=== PATIENT | male | born 1965 | race Caucasian/White ===

== ENCOUNTER 2018-03-12 19:14 | Emergency (ER) | payer MEDICAID, OTHER ==
[2018-03-12] MEDS: LIDOCAINE 1% MDV 20ML VIAL SC (19:34)
[2018-03-12] MEDS: ADACEL/BOOSTRIX VACCINE (DIPHTH/PERTUSS/ACELL/TETANUS)0.5ML SYR (90715) IM (20:22)
== END 2018-03-12 20:44 | disposition home or self-care (01) ==
LOC: M ED 19:14
DX: S61.210A Laceration without foreign body of right index finger without damage to nail, initial encounter (principal); W27.0XXA Contact with workbench tool, initial encounter; Y92.090 Kitchen in other non-institutional residence as the place of occurrence of the external cause; K08.89 Other specified disorders of teeth and supporting structures; F20.9 Schizophrenia, unspecified; Z88.2 Allergy status to sulfonamides; Z88.8 Allergy status to other drugs, medicaments and biological substances; Z79.899 Other long term (current) drug therapy; Z79.51 Long term (current) use of inhaled steroids; Z79.52 Long term (current) use of systemic steroids
CPT/HCPCS: 90715

== ENCOUNTER 2018-03-22 08:58 | Emergency (ER) | payer OTHER, MEDICAID | END 2018-03-22 09:26 | disposition home or self-care (01) | LOC: M ED 08:58 | DX: Z48.02 Encounter for removal of sutures (principal) | CPT/HCPCS: 99282 ==

== ENCOUNTER 2018-09-25 09:19 | Day surgery (SDC) | payer OTHER ==
[~2018-09-25] VITALS: Ht 177.8 cm; Wt 95.0 kg
[~2018-09-25 09:19] MED LIST: ALLE25CA OR; AUGM875T28 PO; BREO1INH3 INH; DEPA250T3 OR; DEPA500T OR; DILA100C OR; FLUPHENAZINE PO; HALO1TAB21 PO; IBUP-1022 PO; INCR1INH INH; INVE156I IM; INVE9TAB OR; LORA-243; LORA-674 PO; LR 1,000 ML IV ONE; OMEG12003 PO; PRED10TA2; PRIL20CA OR; Prolixin; RISP1SS PO; RISP25INJ; RISP3TAB16 OR; RISP4TAB OR; SERO1TAB OR; SERO1TAB PO; SERO1TAB3 OR; SIMV20TA2 PO
[2018-09-25] MEDS ORDERED: PROPOFOL 200 MG/20 ML VIAL As Ordered ONE (09:45)
[2018-09-25] MEDS ORDERED: LIDOCAINE 2% INJ 100 MG/5 ML SDV (FOR ANES.) As Ordered ONE (09:45)
[2018-09-25] MEDS ORDERED: ROCURONIUM BROMIDE 50 MG/5 ML VIAL As Ordered ONE (09:45)
[2018-09-25] MEDS ORDERED: MIDAZOLAM INJ 2 MG/2 ML VIAL (J2250) As Ordered ONE (09:45)
[2018-09-25] MEDS ORDERED: fentaNYL 100 MCG/2 ML INJECTION (J3010) As Ordered ONE (09:45)
[2018-09-25] MEDS ORDERED: EPINEPHrine 1MG/ML INJ 30ML MD-VIAL As Ordered ONE (10:10)
[2018-09-25] MEDS ORDERED: CETACAINE SPRAY 5GM As Ordered ONE (10:10)
[2018-09-25] MEDS ORDERED: dexameTHASONE 4 MG/ML 1ML VIAL (J1100) As Ordered ONE (10:42)
[2018-09-25] MEDS ORDERED: ONDANSETRON 4MG/2ML VIAL (J2405) As Ordered ONE (10:58)
[2018-09-25] MEDS ORDERED: SUGAMMADEX SODIUM 500 MG/5 ML VIAL (BRIDION) As Ordered ONE (10:58)
[2018-09-25] MEDS ORDERED: LR 1,000 ML IV SCH (11:30)
[2018-09-25] MEDS ORDERED: ONDANSETRON 4MG/2ML VIAL (J2405) IV PRN (11:30)
[2018-09-25] MEDS ORDERED: fentaNYL 100 MCG/2 ML INJECTION (J3010) IV PRN (11:30)
[2018-09-25] MEDS ORDERED: PERCOCET 5MG/325MG TAB PO PRN ×2 (11:30)
[2018-09-25] MEDS ORDERED: IBUPROFEN 800 MG TAB PO PRN (11:30)
[2018-09-25 11:50] VITALS: BP 128/84
--- NOTE | 2018-09-26 00:35 | ECGEPIP ---
Stationary ECG Study [facility] Test Date: 2018-09-25 Pat Name: SHAMEKA DUBON Department: Room: - Gender: M Tactical Deception Plans Officer: BECKY : 1965 Requested By: MARIO Dickerson Order Number: [id number] Reading MD: Luis Angel Nicolas Measurements Intervals [place] Rate: 80 P: 68 GA: 153 QRS: 75 QRSD: 101 T: 62 QT: 345 QTc: 400 Interpretive Statements SINUS RHYTHM POSSIBLE RIGHT VENTRICULAR CONDUCTION DELAY Comparison tracing not on file Electronically Signed On 09-26-2018 0:35:08 EDT by Luis Angel Nicolas
--- NOTE | 2018-10-17 12:29 | RO ---
DATE OF OPERATION: 09/25/2018 PREOPERATIVE DIAGNOSIS: Chronic laryngitis. POSTOPERATIVE DIAGNOSIS: Chronic laryngitis. PROCEDURE: Microdirect laryngoscopy with photomicrograph biopsy of selected suspicious area of larynx. SURGEON: Giorgi Shane MD QUILL MACHINE OPERATOR: ANESTHESIA: INDICATIONS: This is a 53-year-old with a long history of smoking behavior associated with increasing hoarseness. Office examination demonstrated laryngitis with a very angry-looking larynx associated with hypertrophy, leukoplakia, and erythema DESCRIPTION OF PROCEDURE: Satisfactory general endotracheal anesthesia administered using the small #5.5 tube. The patient placed in usual position for endoscopy. A double-lighted Dedo laryngoscope was used for inspection. The scope was advanced into the oropharynx into the tongue base and vallecula area, including inspection of the nares showed no lesions. The scope was then advanced into the glottic vestibule. Inspection of piriform fossa, as well as postcricoid region was also clear. Once the scope was in the glottic vestibule, it was suspended with the Lewy apparatus. Photomicrographs were taken that revealed significant amount of hypertrophy, hyperkeratosis of the cords associated with some mucocele formation in the superior surface of both left and right true cord. The supraglottic larynx was also angry red with hypertrophic erythematous mucosa. Select biopsies were done on the superior surface of both vocal cords where the thicker leukoplakia was noted. The cystic lesions were debulked using cup forceps. Care was taken to avoid to the edge of the vocal fold or the lamina propria. Adrenaline pledgets were placed in the biopsy sites for hemostasis and were successful. The larynx was suctioned. Photomicrographs were taken, and then the scope was removed. The patient was then awakened and extubated and sent to recovery in satisfactory condition. He will be in the office in 5 days to discuss the results of his biopsies and to review the importance of smoking cessation.
== END 2018-09-25 12:06 | disposition home or self-care (01) ==
LOC: M SDC 09:19
PROVIDERS: ATTEND Specialist
DX: J37.0 Chronic laryngitis (principal); J38.3 Other diseases of vocal cords; F41.9 Anxiety disorder, unspecified; G40.909 Epilepsy, unspecified, not intractable, without status epilepticus; E78.00 Pure hypercholesterolemia, unspecified; J45.909 Unspecified asthma, uncomplicated; K21.9 Gastro-esophageal reflux disease without esophagitis; F25.9 Schizoaffective disorder, unspecified; Z88.2 Allergy status to sulfonamides; Z88.8 Allergy status to other drugs, medicaments and biological substances; Z91.030 Bee allergy status; Z79.899 Other long term (current) drug therapy; Z72.0 Tobacco use
CPT/HCPCS: 31535; 88305; 93005; J1100; J2250; J2405; J3010

== ENCOUNTER 2020-07-12 13:57 | Inpatient (IN) | payer MEDICAID, OTHER ==
[~2020-07-12] VITALS: Ht 185.4 cm; Wt 79.9 kg
[~2020-07-12 13:57] MED LIST changes: -LR 1,000 ML IV ONE; -SIMV20TA2 PO; +SIMV20TA22 PO
[2020-07-12] MEDS ORDERED: LORazepam 2 MG/ML VIAL IM STA ×2 (15:00→19:41)
[2020-07-12] MEDS ORDERED: HALOPERIDOL 5MG/ML VIAL (J1630 PER 1) As Ordered ONE (15:10)
[2020-07-12] MEDS ORDERED: diphenhydrAMINE 50MG/ML VIAL (J1200) As Ordered ONE (15:10)
[2020-07-12] MEDS ORDERED: diphenhydrAMINE 50MG/ML VIAL (J1200) IM ONE (15:15)
[2020-07-12] MEDS ORDERED: HALOPERIDOL 5MG/ML VIAL (J1630 PER 1) IM ONE (15:15)
[2020-07-12 16:08] LABS: HEMATOCRIT 42.2 % (42.0-52.0); HEMOGLOBIN 14.1 g/dl (13.5-17.5); MEAN CORPUSCULAR HEMOGLOBIN 32.7 pg (27.0-33.0); MEAN CORPUSCULAR HGB CONC 33.4 g/dl (32.0-36.5); MEAN CORPUSCULAR VOLUME 97.9 fl (80.0-96.0); PLATELET COUNT, AUTOMATED 278 10^3/uL (150-450); RED BLOOD COUNT 4.31 10^6/uL (4.30-6.10); WHITE BLOOD COUNT 8.3 10^3/uL (4.0-10.0)
[2020-07-12 16:18] LABS: AMPHETAMINES LEVEL URINE NEGATIVE (NEGATIVE); BARBITURATES URINE NEGATIVE (NEGATIVE); BENZODIAZEPINES URINE NEGATIVE (NEGATIVE); CANNABINOIDS URINE POSITIVE (NEGATIVE); COCAINE METABOLITE URINE NEGATIVE (NEGATIVE); METHADONE URINE NEGATIVE (NEGATIVE); OPIATES URINE NEGATIVE (NEGATIVE); PHENCYCLIDINE URINE NEGATIVE (NEGATIVE)
[2020-07-12 16:28] LABS: ACETAMINOPHEN LEVEL < 2.0 UG/ML (10.0-30.0); ALBUMIN 3.6 GM/DL (3.2-5.2); ALT/SGPT 27 U/L (12-78); BILIRUBIN,DIRECT 0.2 MG/DL (0.0-0.2); BILIRUBIN,TOTAL 0.5 MG/DL (0.2-1.0); BLOOD UREA NITROGEN 9 MG/DL (7-18); CALCIUM LEVEL 9.1 MG/DL (8.5-10.1); CARBON DIOXIDE LEVEL 28 MEQ/L (21-32); CHLORIDE LEVEL 105 MEQ/L (98-107); CREATININE FOR GFR 0.81 MG/DL (0.70-1.30); ETHYL ALCOHOL (ETHANOL) 0.218 % (0.000-0.010); GLOMERULAR FILTRATION RATE > 60.0 (>56); GLUCOSE, FASTING 90 MG/DL (70-100); POTASSIUM SERUM 3.8 MEQ/L (3.5-5.1); SALICYLATE LEVEL 3.2 MG/DL (5.0-30.0); SODIUM LEVEL 139 MEQ/L (136-145); TOTAL PROTEIN 6.9 GM/DL (6.4-8.2)
[2020-07-13] MEDS ORDERED: RISP-8 PO (00:26)
[2020-07-13] MEDS ORDERED: FLUT1INH3 INH (00:26)
[2020-07-13] MEDS ORDERED: RISP1TAB42 PO (00:26)
[2020-07-13] MEDS ORDERED: PATIENT COMMENT (00:27)
[2020-07-13] MEDS ORDERED: MAALOX 30 ML SUSP *UDC PO PRN (01:00)
[2020-07-13] MEDS ORDERED: MOM 30ML SUSPENSION UDC PO PRN (01:00)
[2020-07-13] MEDS ORDERED: LORazepam 2 MG TAB PO PRN (01:00)
[2020-07-13] MEDS: ADVAIR HFA 230/21MCG INHALER INH SCH ×2 (09:15→20:04)
[2020-07-13] MEDS: TIOTROPIUM INHALER/CAPSULE (SPIRIVA) INH SCH (09:15)
[2020-07-13] MEDS: risperiDONE 1 MG TAB PO SCH ×2 (09:16→20:04)
[2020-07-13] MEDS: THIAMINE 100 MG TAB PO SCH ×2 (09:16→20:04)
[2020-07-13] MEDS: FOLIC ACID 1 MG TAB PO SCH (09:16)
[2020-07-13] MEDS: MULTIVITAMINS/MINERALS THERAP 1 TAB PO SCH (09:16)
[2020-07-13] MEDS ORDERED: ALBUTEROL 90 MCG/ACT 8GM HFA INHALER INH PRN (11:00)
[2020-07-13 11:54] VITALS: BP 135/84
--- NOTE | 2020-07-13 13:16 | HPE ---
HISTORY AND PHYSICAL DATE OF ADMISSION: 07/13/2020 HISTORY OF PRESENT ILLNESS: This is a Hospitalist-generated history and physical on Kd Philip who is seen in Inpatient Mental Health Unit. Kd coincidentally was my patient at the [facility], last appointment there was 07/13/2011, lost to medical care at that time. FAMILY HISTORY: Mother COPD, no schizophrenia in family. PAST SURGICAL HISTORY: Left knee surgery, appendectomy, wisdom teeth removed, retinal laser surgery right eye, EGD/colonoscopy 12/2009. MEDICAL HISTORY: During that time he was known to have schizophrenia with several [facility] admissions, history of cecal colon polyp from 12/2009, alcohol and drug abuse, history of possible epilepsy, negative EEG 03/2011, unremarkable MRI of the brain 03/2011, history of asthma, smoking, GI reflux, IBS, increased liver function tests. ALLERGIES: ABILIFY CAUSED HIM TO HEAR VOICES; SULFA CAUSED A RASH; GEODON CAUSED HIM TO HEAR VOICES. REVIEW OF SYSTEMS: No cough, chest pain, shortness of breath, change of bowel or urinary habits. PHYSICAL EXAMINATION: VITAL SIGNS: Afebrile, vital signs stable. GENERAL: He looks more chronically ill than the last time I saw him, he has lost some weight. HEENT: Unremarkable. LUNGS: Clear. HEART: No murmurs. ABDOMEN: Soft, no masses. EXTREMITIES: No edema. Normal strength in arms and legs. NEUROLOGIC: Nonfocal. LABS: CBC and BMP unremarkable. Liver tests were normal. Tox screen positive for cannabinoids. COVID test negative. IMPRESSION: 1. History of asthma - apparently he uses Incruse Ellipta at home which he will continue. 2. Nasal allergies nasal Fluticasone, uses on PRN bases. There are no current medical problems which would require Hospitalist intervention at this time. If conditions change feel free to contact Hospitalist Service.
[2020-07-13 16:11] VITALS: BP 143/88
[2020-07-14 06:18] VITALS: BP 158/90
[2020-07-14 06:36] VITALS: BP 158/90
--- NOTE | 2020-07-14 11:16 | MHHPE ---
[facility] HISTORY AND PHYSICAL DATE OF ADMISSION: 07/13/2020 HISTORY OF PRESENT ILLNESS: This is a 66-year-old man with what appears to be a history of either delusional disorder or schizophrenia, who was brought in by the police. Apparently the neighbors had noted some blood outside his apartment, and when the police came to see him, he was acutely intoxicated and apparently he had smashed a computer. He had a cut on his finger and that is where the blood was coming from. He was noted to be quite disheveled. In the Emergency Room he was talking about having lost money on bit coins. Apparently the patient made homicidal statements some [facility] staff and that is when the police were contacted. In the Emergency Room he was chemically and physically restrained due to being aggressive. Once the patient was no longer intoxicated, he was still felt to be a poor historian, very guarded, unwilling to give much information. He did finally say that he goes to [facility], and he was felt to be unreliable and was therefore admitted. He has a significant history of noncompliance and substance abuse and it appears that he may be chronically psychotic. When I saw him today he was guarded and he was vague, did not give me much information. I was asking him why he is on Risperdal and he would not even tell me what clinic he went to. He just said that his doctor prescribes it for him, and I asked him what he takes it for and his answer was "well that's due to society". He basically insisted that he had to go home, that he had all this money and other important things in his apartment, and I asked him if had anybody that he could call to help him to secure that stuff and his answer was "I don't have any friends". And then he said he was going to put a request to be discharged. And that is as far as the evaluation went because he basically said that he was done talking to me. PAST PSYCHIATRIC HISTORY: I was able to see in the records that he had a hospitalization in September 2012 and it seemed that the patient was pretty paranoid at the time with a diagnosis of rule out delusional disorder, NOS versus schizophrenia, paranoid type and of course alcohol dependence. The patient actually was discharged because they went to court and they could not obtain a retention order and of note was that the patient actually ran out of the court room and they could not really even complete any kind of discharge arrangements for him. I did review the Inpatient Mental Health Unit records from 2013 that say he has a history of being on Prolixin and Seroquel and they indicated that he had no history of suicidal attempts, and I did ask him that today and he said he had no history of suicide attempts. FAMILY HISTORY: The patient's family history was unable to be obtained. PAST MEDICAL HISTORY: The patient did tell me that he is on a couple of inhalers for chronic obstructive pulmonary disease. ABUSE HISTORY: Unable to obtain information. SUBSTANCE ABUSE: The patient has a chronic alcohol abuse problem and toxicology was positive for cannabis. REVIEW OF SYSTEMS: I am really not able to complete it due to the patient not being compliant but his vital signs that are available to me are from yesterday at 20:43 and blood pressure was 119/73, pulse 73, respirations 18. MENTAL STATUS EXAMINATION: This patient is alert. He is oriented times three. Eye contact is poor. He is angry, agitated, guarded. There is no formal thought disorder noted. Mood is angry. Affect labile. He is denying suicidal or homicidal ideations. He is very guarded but based on his past history, it sounds like he has chronic delusions at least and at this point it is very possible that he is delusional but I could not really do enough of an evaluation but I suspect that he is chronically delusional at least. Concentration is poor. I am not able to fully assess his memory. Insight and judgment are poor. DIAGNOSIS: 1. Unspecified psychotic disorder. 2. History of schizophrenia versus delusional disorder. 3. Alcohol use disorder, severe. 4. Cannabis use disorder. TREATMENT PLAN: At this point we will continue to further evaluate this patient for what appears to be paranoid delusions and that very likely are chronic. Or possibly due to the fact that the patient is most likely noncompliant with medications, we did continue the Risperdal one mg q. a.m. and 2 mg q. h.s. and we will further monitor him to see if he continues to deny suicidal or homicidal ideations.
[2020-07-14] MEDS: TIOTROPIUM INHALER/CAPSULE (SPIRIVA) INH SCH (11:26)
[2020-07-14] MEDS: ADVAIR HFA 230/21MCG INHALER INH SCH ×2 (11:28→20:02)
[2020-07-14] MEDS: risperiDONE 1 MG TAB PO SCH ×2 (11:28→20:02)
[2020-07-14] MEDS: MULTIVITAMINS/MINERALS THERAP 1 TAB PO SCH (11:29)
[2020-07-14] MEDS: THIAMINE 100 MG TAB PO SCH ×2 (11:29→20:01)
[2020-07-14] MEDS: FOLIC ACID 1 MG TAB PO SCH (11:29)
[2020-07-14] MEDS: NICOTINE 21MG/24HR 1 EA TRANSDERMAL TD SCH (14:38)
[2020-07-14 19:49] VITALS: BP 146/94
[2020-07-14 21:30] VITALS: BP 135/87
[2020-07-15 04:00] VITALS: BP 135/94
[2020-07-15 06:42] VITALS: BP_SYST 135; BP_SYST 142; BP_DIAS 88; BP_DIAS 94
[2020-07-15] MEDS: ADVAIR HFA 230/21MCG INHALER INH SCH ×2 (08:07→20:27)
[2020-07-15] MEDS: TIOTROPIUM INHALER/CAPSULE (SPIRIVA) INH SCH (08:07)
[2020-07-15] MEDS: NICOTINE 21MG/24HR 1 EA TRANSDERMAL TD SCH (08:07)
[2020-07-15] MEDS: risperiDONE 1 MG TAB PO SCH ×2 (08:07→20:26)
[2020-07-15] MEDS: FOLIC ACID 1 MG TAB PO SCH (09:00)
[2020-07-15] MEDS: THIAMINE 100 MG TAB PO SCH ×2 (09:00→20:26)
[2020-07-15] MEDS: MULTIVITAMINS/MINERALS THERAP 1 TAB PO SCH (09:00)
[2020-07-15 17:53] VITALS: BP 128/83
[2020-07-15] MEDS: ACETAMINOPHEN TAB 650MG DOSE (2X325MG) PO PRN (20:30)
[2020-07-16 06:42] VITALS: BP 146/74
[2020-07-16] MEDS: risperiDONE 2 MG TAB PO SCH (08:15)
[2020-07-16] MEDS: ADVAIR HFA 230/21MCG INHALER INH SCH ×2 (08:16→20:24)
[2020-07-16] MEDS: TIOTROPIUM INHALER/CAPSULE (SPIRIVA) INH SCH (08:16)
[2020-07-16] MEDS: NICOTINE 21MG/24HR 1 EA TRANSDERMAL TD SCH (08:18)
[2020-07-16] MEDS: FOLIC ACID 1 MG TAB PO SCH (08:53)
[2020-07-16] MEDS: MULTIVITAMINS/MINERALS THERAP 1 TAB PO SCH (08:53)
[2020-07-16 14:36] VITALS: BP 132/96
--- NOTE | 2020-07-16 15:37 | MHIPN ---
[facility] PROGRESS NOTE DATE: 07/14/2020 I am assigned to his care today. This is a video assessment. VITAL SIGNS: Blood pressure 158/90, pulse 108, temperature 99.9. CHIEF COMPLAINT: Says he feels fine. SUBJECTIVE: Seen for followup. He is seen in the presence of staff. Says has been feeling fine, and then talks about various matters, but which are not connected, and displays considerable tangentiality of thought, with overly productive sleep, says lives across from his mother, and that they do not get along. Says has been doing okay, wants to know when he can go home. Suggests he attends the [facility]. MENTAL STATUS EXAMINATION: Unkempt, cooperative, fidgety, with mild agitation, speech is overly productive, tangential in thought, he is coherent for only short periods, no overt evidence of intents of harming himself, nor anyone else. He is not internally preoccupied, no current overt delusions elicited, his cognition is possibly intact, his judgment and insight are quite compromised. ASSESSMENT: Delusional disorder versus schizophrenia (unspecified psychotic disorder). His thought patterns, with being tangential, with overly productive speech, raises the possibility of schizoaffective disorder, bipolar type, or bipolar disorder, current episode manic, with psychotic features. The other concern is alcohol use disorder, and he has poor insight there. Has also been diagnosed with cannabis use disorder. PLAN: He is to continue with risperidone at 1 mg in the morning, 2 mg at night, I wanted to increase it to 4 mg a day in divided doses, but he suggests that he has been using the risperidone for quite a while, he is kind of vague on this, but this was supposed to be his outpatient dose, at 3 mg daily. In view of this, will continue with the current dose, and will titrate upwards as indicated. We will encourage him to participate in activities as tolerated. Will look at obtaining collateral information, as best we can. His judgment and insight remain compromised, and he is unable to cater to himself independently at present. Further recommendations will be made depending on the clinical picture. He also suggests that he wishes to have the courts release him. He is aware of the procedures for applying for that. The assessment took 20 minutes.
--- NOTE | 2020-07-16 15:52 | MHIPN ---
[facility] PROGRESS NOTE DATE: 07/15/2020 This is a video assessment, done in the presence of staff, he is aware of it, agrees to it. We are doing this in the pandemic. CHIEF COMPLAINT: Says feels okay. SUBJECTIVE: Seen for followup. Indicates has been doing okay, but that he is concerned about his living situation, something about a landlord, his place as well, it is difficult to follow him, since his thoughts are tangential, his speech is not linear. He also says he has not been taking the risperidone prior to coming here, but that when he had, was getting an injection for risperidone which he was getting every 2 weeks, then suggests it was 2 or 3 years before he got it last. MENTAL STATUS EXAMINATION: Unkempt, somewhat more cooperative, and less fidgety, less agitated, no psychomotor retardation. He is not coherent, tends to ramble somewhat, tangential thoughts, speech possibly a bit less rapid, alludes to delusions, possibly of grandeur, does not appear internally preoccupied. He is alert, oriented. Judgment and insight are quite compromised. ASSESSMENT: Unspecified psychotic disorder. Consider schizoaffective disorder, bipolar type versus bipolar disorder, current episode manic with psychotic features. Alcohol use disorder. Cannabis use disorder. PLAN: I have suggested increasing the risperidone to 2 mg twice a day for a total of 4 mg a day. We will look at obtaining collateral information, including old records, and if feasible, will look at resuming his risperidone, after confirming that he was on it, intramuscular, long acting, every 2 weeks. He has apparently tended to do well in the past when he has been in treatment, regularly. He has put in a request for a court hearing, and staff is organizing a date for that, I understand the relevant legal services are aware. The patient is aware of this, and further recommendations will be made depending on the clinical picture.
[2020-07-16 18:14] VITALS: BP 145/86
[2020-07-16] MEDS: traZODone 50 MG TAB PO PRN (20:24)
[2020-07-16] MEDS: risperiDONE 1 MG TAB PO SCH (20:24)
[2020-07-16 22:00] VITALS: BP 152/67
[2020-07-17 06:40] VITALS: BP 116/69
[2020-07-17] MEDS: TIOTROPIUM INHALER/CAPSULE (SPIRIVA) INH SCH (07:34)
[2020-07-17] MEDS: ADVAIR HFA 230/21MCG INHALER INH SCH ×2 (07:34→20:27)
[2020-07-17] MEDS: FOLIC ACID 1 MG TAB PO SCH (08:26)
[2020-07-17] MEDS: MULTIVITAMINS/MINERALS THERAP 1 TAB PO SCH (08:26)
[2020-07-17] MEDS: NICOTINE 21MG/24HR 1 EA TRANSDERMAL TD SCH (08:26)
[2020-07-17] MEDS: risperiDONE 2 MG TAB PO SCH (08:26)
[2020-07-17 16:19] VITALS: BP 140/82
[2020-07-17] MEDS: traZODone 50 MG TAB PO PRN (20:27)
[2020-07-17] MEDS: risperiDONE 1 MG TAB PO SCH (20:27)
[2020-07-17] MEDS: ACETAMINOPHEN TAB 650MG DOSE (2X325MG) PO PRN (20:28)
[2020-07-18 06:38] VITALS: BP 126/59
[2020-07-18] MEDS: risperiDONE 2 MG TAB PO SCH (08:06)
[2020-07-18] MEDS: TIOTROPIUM INHALER/CAPSULE (SPIRIVA) INH SCH (08:06)
[2020-07-18] MEDS: NICOTINE 21MG/24HR 1 EA TRANSDERMAL TD SCH (08:07)
[2020-07-18] MEDS: ADVAIR HFA 230/21MCG INHALER INH SCH ×2 (08:07→20:11)
[2020-07-18] MEDS ORDERED: risperiDONE LONG-ACTING 25 MG/2 ML INJ (J2794 PER 0.5MG) IM ONE (13:00)
--- NOTE | 2020-07-18 15:57 | MHIPN ---
[facility] PROGRESS NOTE DATE: 07/16/2020 VITAL SIGNS: Blood pressure 145/86, pulse 86, temperature 98.5. This is a video assessment. He is aware of it and agrees to it. CHIEF COMPLAINT: He says feels good. SUBJECTIVE: Seen for followup in the presence of staff. Says feels good and that he has been sleeping well. Says has never had any problems and reports no major current difficulties. Says has been eating well. He indicates that he wishes to go home soon. Acknowledges has not been taking his medicines. Says has been busy working on computers. Says he took a risperidone shot every 2 weeks when he was being seen at the clinic, [facility], though suggests he did not do that for awhile. MENTAL STATUS EXAMINATION: Fairly neat. He is cooperative. Displays mild agitation, rapid speech, tangential thoughts. Is somewhat grandiose in his thinking, deluded with a somewhat labile affect. Denies thoughts of harming himself or anyone else. Does not appear internally preoccupied. His cognition grossly intact. Judgment remains quite questionable, as is insight. ASSESSMENT: 1. Unspecified psychotic disorder. 2. I would suggest schizoaffective disorder, bipolar type, or bipolar disorder with the current manic with psychotic features is more likely. 3. Alcohol use disorder. 4. Cannabis use disorder. He has delusions of grandeur, tangential thoughts. PLAN: Continue risperidone 2 mg twice a day. Look at obtaining collateral information and consider Risperdal Consta intramuscular to be given every 2 weeks. Preferable we will look at past records from the outpatient clinic first. He has applied for a court evaluation to assess for retention, and he will be informed of the date itself. He is aware of this. Further recommendations will be made depending on the clinical picture.
[2020-07-18 19:17] VITALS: BP 137/87
[2020-07-18] MEDS: risperiDONE 1 MG TAB PO SCH (20:09)
[2020-07-18] MEDS: traZODone 50 MG TAB PO PRN (23:10)
[2020-07-18] MEDS ORDERED: OLANZapine ORAL DISINTEGRATING TAB 5MG PO PRN (23:30)
[2020-07-19 06:42] VITALS: BP 151/44
[2020-07-19] MEDS: TIOTROPIUM INHALER/CAPSULE (SPIRIVA) INH SCH (08:43)
[2020-07-19] MEDS: risperiDONE 2 MG TAB PO SCH (08:43)
[2020-07-19] MEDS: ADVAIR HFA 230/21MCG INHALER INH SCH ×2 (08:43→20:22)
[2020-07-19] MEDS: NICOTINE 21MG/24HR 1 EA TRANSDERMAL TD SCH (08:43)
[2020-07-19 18:36] VITALS: BP 139/74
[2020-07-19] MEDS: risperiDONE 1 MG TAB PO SCH (20:22)
[2020-07-19] MEDS: traZODone 50 MG TAB PO PRN (20:22)
[2020-07-20 06:44] VITALS: BP 135/84
[2020-07-20] MEDS: risperiDONE 2 MG TAB PO SCH (08:17)
[2020-07-20] MEDS: ADVAIR HFA 230/21MCG INHALER INH SCH ×2 (08:18→20:16)
[2020-07-20] MEDS: TIOTROPIUM INHALER/CAPSULE (SPIRIVA) INH SCH (08:18)
[2020-07-20] MEDS: NICOTINE 21MG/24HR 1 EA TRANSDERMAL TD SCH (08:19)
[2020-07-20 18:41] VITALS: BP 132/79
[2020-07-20] MEDS: risperiDONE 1 MG TAB PO SCH (20:14)
[2020-07-20] MEDS: traZODone 50 MG TAB PO PRN (20:14)
--- NOTE | 2020-07-20 20:41 | MHIPN ---
[facility] PROGRESS NOTE DATE: 07/17/2020 VITAL SIGNS: Blood pressure 140/82, pulse 97, temperature 98.5. CHIEF COMPLAINT: Says feels fine. SUBJECTIVE: He is seen for followup, this is a video assessment, he is seen in the presence of staff. He says he feels "fine," and that he had a good night, he slept well. He says he has been eating okay. Suggests had used Invega in the past, alluded to then using risperidone at some point, injectable, says preferred it. Says would go to the clinic every 2 weeks when he was on it. MENTAL STATUS EXAMINATION: Neat, cooperative, a bit unkempt, but neater than yesterday. No psychomotor retardation. Speech is overly productive, but not as prominently as it has been. Denies any suicidal thoughts or intents, no evidence of any homicidal ideas or intents, delusions possibly a little less prominent. Judgment and insight remain compromised. ASSESSMENT: Schizoaffective disorder, bipolar type. Rule out bipolar disorder, current episode manic with psychotic features. Alcohol use disorder. Cannabis use disorder. PLAN: Continue risperidone 2 mg twice a day. Will plan on using injectable Risperdal Consta, at 25 mg intramuscular every 2 weeks. He has tolerated the risperidone quite well. Will encourage him to participate in activities in the unit as tolerated. There is a court date for next week, the patient is aware of it, that is for retention of the patient, but should matters improve before that, will look at discharging him.
--- NOTE | 2020-07-20 21:32 | MHIPN ---
[facility] PROGRESS NOTE DATE: 07/19/2020 VITAL SIGNS: Blood pressure 137/87, pulse 93, temperature 98.7. This is a video assessment, he is seen in the presence of staff. CHIEF COMPLAINT: Says feels good. SUBJECTIVE: Seen for followup. Indicates feels good, and that he slept well. Says has been eating well. Suggests is eager to go home. He says moods have been good. MENTAL STATUS EXAMINATION: He is neat, cooperative, less tangential, thoughts are more linear, speech less overly productive. Affect is fairly broad. Denies thoughts of harming himself or anyone else, less overtly grandiose. Alert and oriented. Judgment and insight remain compromised, at present. ASSESSMENT: Consider schizoaffective disorder bipolar type versus bipolar disorder, current episode manic with psychotic features. Alcohol use disorder. Cannabis use disorder. Clinically, a bit improved, today. PLAN: Continue risperidone 2 mg twice a day. He has been given Risperdal Consta intramuscular 25 mg today. He will receive it every 2 weeks. He has used in the past, but not for the last few years, at the outpatient clinic at [facility]. We will encourage him to participate in activities in the unit. There is a court date, I understand, for next week, 07/23/2020, but should his condition improve, would look at discharging him before then. Further recommendations will be made depending on the picture.
[2020-07-21 07:01] VITALS: BP 115/67
[2020-07-21] MEDS: ADVAIR HFA 230/21MCG INHALER INH SCH ×2 (07:33→20:06)
[2020-07-21] MEDS: TIOTROPIUM INHALER/CAPSULE (SPIRIVA) INH SCH (07:33)
[2020-07-21] MEDS: NICOTINE 21MG/24HR 1 EA TRANSDERMAL TD SCH (07:55)
[2020-07-21] MEDS: risperiDONE 2 MG TAB PO SCH (07:55)
[2020-07-21 16:54] VITALS: BP 122/76
[2020-07-21] MEDS: risperiDONE 1 MG TAB PO SCH (20:06)
[2020-07-21] MEDS: traZODone 50 MG TAB PO PRN (20:40)
[2020-07-22] MEDS: NICOTINE 21MG/24HR 1 EA TRANSDERMAL TD SCH (08:07)
[2020-07-22] MEDS: ADVAIR HFA 230/21MCG INHALER INH SCH ×2 (08:07→20:10)
[2020-07-22] MEDS: TIOTROPIUM INHALER/CAPSULE (SPIRIVA) INH SCH (08:08)
[2020-07-22] MEDS: risperiDONE 2 MG TAB PO SCH (08:09)
[2020-07-22 16:18] VITALS: BP 130/81
[2020-07-22] MEDS: traZODone 50 MG TAB PO PRN (20:10)
[2020-07-22] MEDS: risperiDONE 1 MG TAB PO SCH (20:10)
--- NOTE | 2020-07-22 21:13 | MHIPN ---
[facility] PROGRESS NOTE DATE: 07/21/2020 VITAL SIGNS: Blood pressure 122/76, pulse 95, temperature 98.9. CHIEF COMPLAINT: Says feels fine. SUBJECTIVE: He is seen for followup, he is seen in the presence of staff, this is a video assessment. Says he feels fine, and is upset as to why he is not discharged, says would come back in a couple of weeks, or attend clinic, for the injection for risperidone. Says will have his mother pick him up from hospital. Wants to be discharged today. MENTAL STATUS EXAMINATION: He is neat, cooperative, easily agitated, rapid speech, tangential in thought, not linear in his thought processes, with a labile affect, irritability, delusions which are somewhat grandiose, says is working in computers, and other major projects. He denies any overt thoughts of hurting himself or anyone else, has delusions as stated previously. His judgment and insight are quite compromised. ASSESSMENT: Schizoaffective disorder, bipolar type. The other possibility is bipolar disorder, current episode manic with psychotic features. Alcohol use disorder. Cannabis use disorder. Remains manic, with some delusions of grandiosity. His labile affect, tangential thoughts, poor judgment and insight compromise his functioning, and they detrimentally impact his ability to cater for himself at present. PLAN: His to continue risperidone at 2 mg twice a day. He has received Risperdal Consta intramuscular at 25 mg a couple of days ago, and is due for his next shot in 2 weeks. His condition is not stable enough for him to be discharged, and we will encourage him to participate in activities in the unit, and continue monitoring him. He wishes to leave, and he is aware of the court date, the court hearing is in a couple of days, 07/23/2020. Further recommendations will be made depending on the clinical picture.
[2020-07-23 06:29] VITALS: BP 153/80
[2020-07-23] MEDS: ADVAIR HFA 230/21MCG INHALER INH SCH (07:35)
[2020-07-23] MEDS: TIOTROPIUM INHALER/CAPSULE (SPIRIVA) INH SCH (07:35)
[2020-07-23] MEDS: risperiDONE 2 MG TAB PO SCH (08:00)
[2020-07-23] MEDS: NICOTINE 21MG/24HR 1 EA TRANSDERMAL TD SCH (08:00)
[2020-07-23] MEDS ORDERED: RISP25INJ IM (14:08)
[2020-07-23] MEDS ORDERED: RISP-8 PO (14:08)
--- NOTE | 2020-07-23 15:46 | DSES ---
DISCHARGE SUMMARY DATE OF ADMISSION: 07/13/2020 DATE OF DISCHARGE: 07/23/2020 DISCHARGE DIAGNOSES: 1. Bipolar disorder, most recent episodes manic with psychotic features. 2. Alcohol use disorder. DISCHARGE MENTAL STATUS EXAMINATION: He is neat. He is cooperative. No agitation. No psychomotor retardation. He is less tangential. He is coherent for the most part. Affect less labile. He denies any suicidal thoughts or intents. No homicidal ideas or intents. Currently no overt psychotic features elicited. No delusional ideations. He is alert and oriented. Judgment and insight though compromised, a bit improved. HISTORY OF PRESENT ILLNESS: He is 55 years old and lives on his own. He has a history of psychiatric difficulties, has previously been diagnosed with schizophrenia versus bipolar disorder versus schizoaffective disorder. Also has a history of alcohol use disorder, cannabis use disorder. He was admitted to the hospital after he was brought here by police, neighbor had called the police. The patient was acutely intoxicated, had smashed a computer, had cut his finger, and was aggressive and agitated. Please refer to Dr. Burciaga's initial summary for details of the patient's admission, background history, and mental status exam at the time of admission. HOSPITAL COURSE: He was placed on relevant precautions, started on risperidone by mouth, which was started at 1 mg in the morning, 2 mg at night, and this was gradually increased to 2 mg twice a day. The patient was noted to be agitated, irritable, with overly productive speech, tangential thoughts, delusions of grandiosity, with poor judgment and insight. It should be noted on admission, urine toxicology was positive for cannabis, and blood alcohol level was 0.21. He wanted to be discharged, and he applied for a court hearing for that. Meanwhile, we suggested he take the injectable Risperidone Consta and then go to the clinic for his further treatment. There were concerns regarding his judgment, his agitation, and his insight, and there were many attempts to pursued him to adhere to the recommendations. He agreed to take the Risperidone Consta, 25 mg intramuscular, to be given every two weeks, and the first dose was given on 07/18. He became somewhat less agitated and irritable, but judgment and insight remained of concern. Court hearing was held this morning, 07/23/2020, and the court has decided to discharge the patient. The patient has agreed to follow-up for outpatient care. Mental status examination at the time of discharge, please see above. Discharge diagnosis, please see above. DISCHARGE MEDICATIONS: 1. Risperidone 2 mg twice a day. Scripts are sent for a week, no refills. 2. Risperidone [place] 25 mg intramuscular, he is to receive every two weeks. His first injection was 07/18, and the next one will be due 08/01. An appointment will be set up for him. APPOINTMENT ON DISCHARGE: He has an appointment at [facility], to help with substance use on 07/24/2020. [facility] 07/28/2020. [facility] 07/30/2020. Discharge planning took about 30 minutes.
--- NOTE | 2020-07-24 09:09 | MHIPN ---
[facility] PROGRESS NOTE DATE: 07/23/2020 I have just attended a court hearing for Mr. Philip, this was this morning, and the result is that he is being discharged by the court.
== END 2020-07-23 15:00 | disposition home or self-care (01) | DRG 753 ==
LOC: M ED 13:57 → M ED INP 07-13 01:17 → M PSY 07-13 02:12
PROVIDERS: ADMIT Psychiatry & Neurology Psychiatry; ATTEND Psychiatry & Neurology Psychiatry
DX: F31.2 Bipolar disorder, current episode manic severe with psychotic features (principal); F10.10 Alcohol abuse, uncomplicated; J45.909 Unspecified asthma, uncomplicated; K21.9 Gastro-esophageal reflux disease without esophagitis; Z88.2 Allergy status to sulfonamides; Z88.8 Allergy status to other drugs, medicaments and biological substances

== ENCOUNTER 2022-01-01 12:27 | Emergency (ER) | payer MEDICAID ==
[~2022-01-01] VITALS: Ht 177.8 cm; Wt 68.6 kg
[~2022-01-01 12:27] MED LIST changes: +FLUT1INH3 INH; +PATIENT COMMENT; +RISP-8 PO; +RISP1TAB42 PO; +RISP25INJ IM
[2022-01-01] MEDS ORDERED: RABIES IMMUNE GLOBULIN 1500 INTERNATIONAL UNIT/5ML VIAL (90375) IM.IMMUN ONE (15:20)
[2022-01-01] MEDS ORDERED: RABIES VACCINE HUMAN 2.5 INTERNATIONAL UNITS/ML VIAL (90675) IM ONE (15:20)
[2022-01-01] MEDS ORDERED: BOOSTRIX/ADACEL VACCINE (DIPHTH/PERTUSS/ACELL/TETANUS) 0.5ML SYR IM ONE (15:25)
[2022-01-01 17:10] VITALS: BP 119/65
== END 2022-01-01 17:18 | disposition home or self-care (01) ==
LOC: M ED 12:27
DX: S21.239A Puncture wound without foreign body of unspecified back wall of thorax without penetration into thoracic cavity, initial encounter (principal); W55.81XA Bitten by other mammals, initial encounter; K21.9 Gastro-esophageal reflux disease without esophagitis; J45.909 Unspecified asthma, uncomplicated; G40.89 Other seizures; F20.9 Schizophrenia, unspecified; Y92.009 Unspecified place in unspecified non-institutional (private) residence as the place of occurrence of the external cause; Y93.9 Activity, unspecified; Z88.2 Allergy status to sulfonamides; Z91.030 Bee allergy status; Z88.8 Allergy status to other drugs, medicaments and biological substances; Z79.899 Other long term (current) drug therapy; Y99.9 Unspecified external cause status; Z23 Encounter for immunization

== ENCOUNTER 2023-12-23 15:41 | Inpatient (IN) | payer MEDICAID, OTHER ==
[~2023-12-23] VITALS: Ht 175.3 cm; Wt 75.0 kg
[~2023-12-23 15:41] MED LIST changes: +LORA-1041 PO; -LORA-674 PO; +RISP-105 PO; -RISP-8 PO
[2023-12-23] MEDS ORDERED: diphenhydrAMINE 50MG/ML VIAL As Ordered ONE (16:06)
[2023-12-23] MEDS ORDERED: OLANZapine INTRAMUSCULAR 10MG VIAL As Ordered ONE (16:06)
[2023-12-23] MEDS ORDERED: LORazepam 2 MG/ML 1ML VIAL As Ordered ONE (16:07)
[2023-12-23] MEDS: LORazepam 2 MG/ML 1ML VIAL IM ONE (16:19)
[2023-12-23] MEDS: diphenhydrAMINE 50MG/ML VIAL IM ONE (16:20)
[2023-12-23] MEDS: OLANZapine INTRAMUSCULAR 10MG VIAL IM ONE (16:21)
[2023-12-23 17:36] LABS: HEMOGLOBIN 14.3 g/dl (13.5-17.5); MEAN CORPUSCULAR HEMOGLOBIN 32.5 pg (27.0-33.0); MEAN CORPUSCULAR VOLUME 95.5 fl (80.0-96.0); PLATELET COUNT, AUTOMATED 342 10^3/uL (150-450); WHITE BLOOD COUNT 7.7 10^3/uL (4.0-10.0)
[2023-12-23 18:00] LABS: ETHYL ALCOHOL (ETHANOL) 0.204 % (0.000-0.010)
[2023-12-23 18:01] LABS: CPK CREATINE PHOSPHOKINASE 197 U/L (46-171)
[2023-12-23 18:02] LABS: ALBUMIN 3.3 G/DL (3.2-5.2); ALKALINE PHOSPHATASE 80 U/L (46-116); ALT/SGPT 54 U/L (7.0-40); AST/SGOT 43 U/L (<34); BILIRUBIN,DIRECT 0.1 MG/DL (<0.4); BILIRUBIN,TOTAL 0.5 MG/DL (0.3-1.2); BLOOD UREA NITROGEN 11 MG/DL (9-23); CALCIUM LEVEL 9.1 MG/DL (8.5-10.1); CARBON DIOXIDE LEVEL 27 MMOL/L (20-31); CHLORIDE LEVEL 108 MMOL/L (98-107); CREATININE FOR GFR 0.64 MG/DL (0.70-1.30); GLOMERULAR FILTRATION RATE > 60.0 (>56); GLUCOSE, FASTING 85 MG/DL (60-100); POTASSIUM SERUM 4.4 MMOL/L (3.5-5.1); SALICYLATE LEVEL < 3.0 MG/DL (<30); SODIUM LEVEL 142 MMOL/L (136-145); TOTAL PROTEIN 6.9 G/DL (5.7-8.2)
[2023-12-23 18:03] LABS: THYROID STIMULATING HORMONE 0.616 uIU/ML (0.55-4.78)
[2023-12-23 19:55] LABS: AMPHETAMINES LEVEL URINE NEGATIVE (NEGATIVE); BARBITURATES URINE NEGATIVE (NEGATIVE); BENZODIAZEPINES URINE NEGATIVE (NEGATIVE); COCAINE METABOLITE URINE NEGATIVE (NEGATIVE); METHADONE URINE NEGATIVE (NEGATIVE); OPIATES URINE NEGATIVE (NEGATIVE); PHENCYCLIDINE URINE NEGATIVE (NEGATIVE)
[2023-12-23 20:05] LABS: CANNABINOIDS URINE POSITIVE (NEGATIVE)
[2023-12-24] MEDS ORDERED: PRED20TA PO (03:07)
[2023-12-24] MEDS ORDERED: CLIN-250 PO (03:07)
[2023-12-24] MEDS ORDERED: HOME MED LIST COMPLETE! XX SCH (03:10)
[2023-12-24] MEDS ORDERED: MAALOX 30 ML SUSP *UDC PO PRN (20:15)
[2023-12-24] MEDS ORDERED: IBUPROFEN 400MG TAB PO PRN (20:15)
[2023-12-24] MEDS ORDERED: MOM 30ML SUSPENSION UDC PO PRN (20:15)
[2023-12-24] MEDS: THIAMINE 100 MG TAB PO SCH (21:09)
[2023-12-24] MEDS: ACETAMINOPHEN TAB 650MG DOSE (2X325MG) PO PRN (23:07)
[2023-12-24 23:12] VITALS: BP 128/83
[2023-12-24] MEDS: LORazepam 2 MG TAB PO PRN (23:21)
[2023-12-24 23:30] VITALS: BP 128/83; TEMP 98.7; O2SAT 98
[2023-12-25 03:30] VITALS: BP 126/80; TEMP 98.5; O2SAT 99
[2023-12-25 06:08] VITALS: BP 134/63; TEMP 98; O2SAT 98
[2023-12-25] MEDS: TIOTROPIUM INHALER/CAPSULE (SPIRIVA) INH SCH (08:00)
[2023-12-25] MEDS: MULTIVITAMINS/MINERALS THERAP 1 TAB PO SCH (10:08)
[2023-12-25] MEDS: FOLIC ACID 1MG TAB PO SCH (10:08)
[2023-12-25 10:41] VITALS: BP 122/79
[2023-12-25 17:32] VITALS: BP 155/97; TEMP 97.1; O2SAT 100
[2023-12-25 17:45] VITALS: BP 137/94
[2023-12-25] MEDS: NICOTINE 21MG/24HR 1 EA TRANSDERMAL TD SCH (18:36)
[2023-12-25 21:15] VITALS: BP 130/96
[2023-12-25] MEDS: CLINDAMYCIN 150MG CAPSULE PO SCH (21:35)
[2023-12-25] MEDS: ADVAIR HFA 115/21MCG INHALER INH SCH (21:35)
[2023-12-25] MEDS: traZODone 50 MG TAB PO PRN (21:35)
[2023-12-25] MEDS: predniSONE 20 MG TAB PO SCH (21:36)
[2023-12-26 06:00] VITALS: BP 136/89; TEMP 98.6; O2SAT 96
[2023-12-26] MEDS ORDERED: ALBUTEROL 90 MCG/ACT 8GM HFA INHALER INH PRN (07:55)
[2023-12-26] MEDS ORDERED: RISPERIDONE 1 MG TAB PO SCH (09:00)
[2023-12-26 17:58] VITALS: BP 133/83; TEMP 98.1
[2023-12-26] MEDS: diphenhydrAMINE 25MG CAP PO PRN (20:00)
[2023-12-26] MEDS: RISPERIDONE 1 MG TAB PO SCH (20:00)
[2023-12-27 06:26] VITALS: BP 128/75; TEMP 97.7; O2SAT 99
[2023-12-27 18:15] VITALS: BP 143/82; TEMP 98.9
[2023-12-28 06:20] VITALS: BP 134/89; TEMP 98.7; O2SAT 98
[2023-12-28] MEDS ORDERED: RISP1TAB42 PO (08:13)
[2023-12-28] MEDS ORDERED: CLIN-250 PO (08:13)
== END 2023-12-28 09:55 | disposition home or self-care (01) | DRG 753 ==
LOC: M ED 15:41 → M ED INP 12-24 20:14 → M PSY 12-24 22:46
PROVIDERS: ADMIT Student in an Organized Health Care Education/Training Program; ATTEND Student in an Organized Health Care Education/Training Program
DX: F31.9 Bipolar disorder, unspecified (principal); Z78.1 Physical restraint status; R45.851 Suicidal ideations; R45.850 Homicidal ideations; F12.90 Cannabis use, unspecified, uncomplicated; F10.10 Alcohol abuse, uncomplicated; F29 Unspecified psychosis not due to a substance or known physiological condition; Z88.2 Allergy status to sulfonamides; Z88.8 Allergy status to other drugs, medicaments and biological substances; Z91.030 Bee allergy status; Z79.899 Other long term (current) drug therapy; Z79.52 Long term (current) use of systemic steroids; K21.9 Gastro-esophageal reflux disease without esophagitis; J44.9 Chronic obstructive pulmonary disease, unspecified; K58.8 Other irritable bowel syndrome; F17.200 Nicotine dependence, unspecified, uncomplicated; K05.319 Chronic periodontitis, localized, unspecified severity